=== PATIENT | male | born 1970 | race Caucasian/White ===

== ENCOUNTER 2021-07-30 06:48 | Outpatient (CLI) | payer BC, SELFPAY ==
--- NOTE | ~2021-07-30 | MR_ITS ---
EXAMINATION: MR lumbar spine wo con EXAM DATE: 07/30/2021 07:34 INDICATION: M54.16 - Radiculopathy, lumbar region. TECHNIQUE: Multi-sequential, multiplanar MR images of the lumbar spine were obtained without contrast . Sagittal T1, T2, T2 fat saturation images. Axial T2 weighted images. Comparison is made to prior examination from 04/17/2010. FINDINGS: There is been interval posterior and interbody fusion L3-5. Probable additional left hemila minotomy at L5-S1, correlate with surgical history. The conus medullaris terminates at the L1/2 level and has normal signal intensity and morphology. There is moderate loss of the L5-S1 disc height wit h 4 mm retrolisthesis. The vertebral bodies are otherwise aligned. Level by level evaluation: T12-L1: Disc does not extend beyond the endplate margin. Facet arthropathy: None. Neural foraminal stenosis: No stenosis. Central canal stenosis: No stenosis. L1-L2: Disc does not extend beyond the endplate margin. Facet arthropathy: Mild bilateral. Neural foraminal stenosis: No stenosis. Central canal stenosis: No stenosis. L2-L3: There is a mild to moderate diffuse disc bulge. Facet arthropathy: Mild to moderate. Neural foraminal stenosis: Mild right. Central canal stenosis: Mild to moderate. L3-L4: This level is fused with mild to moderate disc bulge suspected. Facet arthropathy: Moderate. Neural foraminal stenosis: Mild bilateral. Central canal stenosis: Mild to moderate. L4-L5: This level is fused with mild to moderate disc bulge still suspected. Facet arthropathy: Moderate bilateral. Neural foraminal stenosis: Mild to moderate bilateral. Central canal stenosis: Mild to moderate. L5-S1: There is a large diffuse disc bulge. Facet arthropathy: Moderate to severe right, moderate left. Neural foraminal stenosis: Moderate to severe right, moderate left. Central canal stenosis: Moderate. Compared to previous examination, the surgical changes are new. There appears to be more epidural lip omatosis than in 2010, which is contributing to smaller thecal sac space. Overall progression in spon dylosis. IMPRESSION: 1. L5-S1 grade 1 retrolisthesis, moderate to severe right neural foraminal stenosis. 2. L3-L5 fusion. 3. Progression in spondylosis as above. Reviewed, dictated and finalized at location A. IMPRESSION: 1. L5-S1 grade 1 retrolisthesis, moderate to severe right neural foraminal forrest nosis. 2. L3-L5 fusion. 3. Progression in spondylosis as above.
== END 2021-07-30 06:49 | disposition home or self-care (01) ==
PROVIDERS: PCP Family Medicine; Visit Provider Family Medicine
DX: M47.26 Other spondylosis with radiculopathy, lumbar region (principal); Z98.1 Arthrodesis status
CPT/HCPCS: 72148

== ENCOUNTER 2023-06-22 00:24 | Day surgery (SDC) | payer BC, SELFPAY ==
[2023-06-09 14:09] VITALS: BMI 28.8
--- NOTE | 2023-06-21 13:45 | P.PNAN_ITS ---
Anes - Initial Pre Proc Eval Procedure: Operation Date: 06/22/23 11:30 Proposed Procedures p Screening Colonoscopy - Demetris Zavaleta MD Date/Time: 06/21/23 13:45 Surgeon: Demetris Zavaleta MD Pre Op Diagnosis: neoplasm screening Patient Data Age: 52 Gender: M Height: 1.78 m Weight: 91 kg Allergies Allergy/AdvReac Type Severity Reaction Status Date / Time No Known Allergies Allergy Verified 06/22/23 10:18 Home Medications Medication Instructions Recorded Confirmed Type aspirin 81 mg tablet,delayed 81 mg PO DAILY 07/14/21 06/09/23 History release pregabalin 50 mg capsule 50 mg PO BID 07/14/21 06/09/23 History amlodipine 10 mg tablet 10 mg PO DAILY #90 tabs 10/01/21 06/09/23 Rx atorvastatin 40 mg tablet 40 mg PO DAILY #90 tabs 10/01/21 06/09/23 Rx carvedilol 25 mg tablet 25 mg PO Q12H #180 tabs 10/01/21 06/09/23 Rx doxazosin 4 mg tablet 4 mg PO DAILY #90 tabs 10/01/21 06/09/23 Rx cyclobenzaprine 5 mg tablet 5 mg PO TID PRN muscle spasm #30 10/28/22 06/09/23 Rx tabs tramadol 50 mg tablet 50 mg PO DAILY PRN Pain 06/09/23 06/09/23 History Patient hx anesthesia problems: none Family hx anesthesia problems: none Results Review: All pre-operative results and documents have been reviewed as part of the pre- operative evaluation. [facility] Past Medical History Medical History HLD (hyperlipidemia) HTN (hypertension) Surgical History Surgical History Disc displacement, lumbar L4 Family History Family History Father Melanoma Lung cancer Mother Hypertension Other Family history of arthritis Social History Social History (Updated 06/22/23 @ 10:48 by Karan Galvan DO) Smoking status: Current every day smoker Tobacco type: smokeless tobacco Smokeless tobacco user: chewing tobacco Second hand tobacco smoke exposure: Yes Smoking end date: 10/31/09 Alcohol intake: current Drinks per week: 40 Alcohol use details: vodka 6+ drinks/day Substance use: never Substance use type: does not use Living arrangements: with family Occupation/Education: occupation Gender identity (if verbalized by the patient): Male Sexual Orientation (if Verbalized by the Patient): Straight or Heterosexual Spiritual care concerns: No Anes - Eval Final PreProcedure Day of Procedure 06/21/23 13:45 Patient weight: overweight Heart: regular rate and rhythm Lungs: clear to auscultation Airway: Mallampati scale class II Neurological: alert and oriented Last oral intake: >/= 8 hours ASA classification: III Emergent: no Anesthetic plan: proceed Anesthesia type and monitoring: general GIVS and standard monitoring Results Review: All pre-operative results and documents have been reviewed as part of the pre- operative evaluation. Informed Consent: The patient's anesthetic plan and its attendant risks and benefits were discussed with the patient/family/POA. Questions were solicited and answers provided to the satisfaction of the patient/family/POA.
--- NOTE | 2023-06-21 15:50 | PM.HPGS ---
History of Present Illness History of Present Illness Consent: Risks, benefits, and alternatives have been discussed and questions answered. Patient agrees to proceed with procedure. Chief complaint: neoplasm screening Narrative: Agapito Rubio is a 52 year old male referred for colon cancer screening. Review of Systems Review of Systems: All systems reviewed & are unremarkable except as noted in HPI and below PMFSH Past Medical History Medical History HLD (hyperlipidemia) HTN (hypertension) Surgical History Surgical History Disc displacement, lumbar L4 Family History Family History Father Melanoma Lung cancer Mother Hypertension Other Family history of arthritis Social History Social History Smoking status: Current every day smoker Tobacco type: smokeless tobacco Smokeless tobacco user: chewing tobacco Second hand tobacco smoke exposure: Yes Smoking end date: 10/31/09 Alcohol intake: current Drinks per week: 40 Alcohol use details: vodka 6+ drinks/day Substance use: never Substance use type: does not use Living arrangements: with family Occupation/Education: occupation Gender identity (if verbalized by the patient): Male Sexual Orientation (if Verbalized by the Patient): Straight or Heterosexual Spiritual care concerns: No Meds Home Medications and Allergies Home Medications Medication Instructions Recorded Confirmed Type aspirin 81 mg tablet,delayed 81 mg PO DAILY 07/14/21 06/09/23 History release pregabalin 50 mg capsule 50 mg PO BID 07/14/21 06/09/23 History amlodipine 10 mg tablet 10 mg PO DAILY #90 tabs 10/01/21 06/09/23 Rx atorvastatin 40 mg tablet 40 mg PO DAILY #90 tabs 10/01/21 06/09/23 Rx carvedilol 25 mg tablet 25 mg PO Q12H #180 tabs 10/01/21 06/09/23 Rx doxazosin 4 mg tablet 4 mg PO DAILY #90 tabs 10/01/21 06/09/23 Rx cyclobenzaprine 5 mg tablet 5 mg PO TID PRN muscle spasm #30 10/28/22 06/09/23 Rx tabs tramadol 50 mg tablet 50 mg PO DAILY PRN Pain 06/09/23 06/09/23 History Allergies Allergy/AdvReac Type Severity Reaction Status Date / Time No Known Allergies Allergy Verified 06/22/23 10:18 Exam Resp: Auscultation: clear to auscultation bilaterally Cardio: Rate: regular rate Rhythm: regular rhythm GI: GI Palp: Yes Soft to palpation and No Tenderness to palpation present (GI) Assessment and Plan Assessment and plan (1) Colon cancer screening: Code(s): Z12.11 - Encounter for screening for malignant neoplasm of colon Status: Acute Assessment and Plan: Colonoscopy with possible biopsy or polypectomy or cautery or injection of substances.
[2023-06-22 10:19] VITALS: BP 153/94; PULSE 86; RESP 18; TEMP 36.2; O2SAT 99
[2023-06-22] MEDS: LACTATED RINGERS 1,000 ML 150 ML IV CONT (10:28)
[2023-06-22 11:42] VITALS: BP 120/80; PULSE 82; RESP 16; O2SAT 98
[2023-06-22 11:52] VITALS: BP 129/89; PULSE 81; RESP 16; O2SAT 99
[2023-06-22 12:02] VITALS: BP 146/99; PULSE 80; RESP 19; O2SAT 99
== END 2023-06-22 12:20 | disposition home or self-care (01) ==
PROVIDERS: PCP Family Medicine; Visit Provider Internal Medicine Gastroenterology
PROC: 0DJD8ZZ Inspection of Lower Intestinal Tract, Via Natural or Artificial Opening Endoscopic (ICD-10-PCS; CPT 45378; principal; 2023-06-22 11:30)
DX: Z12.11 Encounter for screening for malignant neoplasm of colon (principal); K57.30 Diverticulosis of large intestine without perforation or abscess without bleeding; I10 Essential (primary) hypertension; E78.5 Hyperlipidemia, unspecified; Z79.82 Long term (current) use of aspirin; F17.220 Nicotine dependence, chewing tobacco, uncomplicated
CPT/HCPCS: 45378; J2704; J7120

== ENCOUNTER 2023-07-12 07:50 | Outpatient (CLI) | payer BC, SELFPAY ==
[2023-07-12 09:30] LABS: Alanine Aminotransferase 60 U/L (6-50); Albumin Level 4.9 g/dL (3.5-5.1); Alkaline Phosphatase 54 U/L (38-126); Anion Gap 11 mmol/L (8-16); Aspartate Amino Transferase 62 U/L (17-59); Bilirubin,Total 0.9 mg/dL (0.2-1.3); Blood Urea Nitrogen 13 mg/dL (9-20); Calcium 9.4 mg/dL (8.4-10.2); Carbon Dioxide 27 mmol/L (22-30); Chloride 101 mmol/L (98-107); Cholesterol 124 mg/dL (0-200); Estimated Glomerular Filt Rate > 60; Glucose 103 mg/dL (65-110); HDL Direct 31 mg/dL; Potassium 4.1 mmol/L (3.4-5.0); Sodium 139 mmol/L (137-145); Triglycerides 81 mg/dL (<150)
[2023-07-12 09:41] LABS: Hematocrit 44.7 % (42.0-52.0); Hemoglobin 15.2 g/dL (14.0-18.0); Mean Corpuscular Hemoglobin 32.6 pg (26-34); Mean Corpuscular Volume 95.9 fl (80-100); Mean Platelet Volume 10.1 fl (7.4-10.4); Platelet Count Result 379 k/mm3 (150-375); Red Blood Count 4.66 M/mm3 (4.6-6.20); Red Cell Distribution Width 11.8 % (11.5-14.5); White Blood Count 7.3 K/mm3 (4.5-10.0)
[2023-07-12 09:42] LABS: LDL Cholesterol Direct 66 mg/dL
[2023-07-12 09:43] LABS: Amorphous Sediment Urine Present; Appearance Urine Cloudy (Clear); Bacteria Urine 4+ /hpf; Bilirubin Urine 1+ (Negative); Blood Urine Negative (Negative); Color Urine Dark Yellow (Yellow); Glucose Urine UA Negative (Negative); Ketones Urine Trace mg/dL (Negative); Leukocyte Esterase Ur Trace LEU/UL (NEGATIVE); Need Manual Microscopic Reviewed; Nitrate Urine Positive (Negative); Protein Urine Negative (Negative); RBC Urine 0-2 /hpf (0-2); Specific Grav Ur 1.035 (1.001-1.035); Squamous Epithelial Cell Urine Occasional /hpf (Few); Urobilinogen Urine 0.2 mg/dL (<2.0); WBC Urine 21-50 /hpf (0-3); pH Urine 5.5 (5.0-9.0)
[2023-07-12 09:46] LABS: Add Urine Microscopic? YES
[2023-07-12 10:01] LABS: Prostate Specific Antigen 1.5 ng/mL (< OR = 4.0)
[2023-07-12 10:28] LABS: Vitamin D 25 Hydroxy 48.3 ng/mL
== END 2023-07-12 07:51 | disposition home or self-care (01) ==
PROVIDERS: PCP Family Medicine; Visit Provider Physician Assistant
DX: E78.5 Hyperlipidemia, unspecified (principal); I10 Essential (primary) hypertension; R53.83 Other fatigue; Z12.5 Encounter for screening for malignant neoplasm of prostate
CPT/HCPCS: 36415; 80053; 80061; 81001; 82306; 84153; 84443; 85027; G0103

== ENCOUNTER 2023-11-30 15:17 | Outpatient (CLI) | payer BC, SELFPAY ==
[2023-11-30 19:20] LABS: Alanine Aminotransferase 25 U/L (6-50); Albumin Level 4.6 g/dL (3.5-5.1); Alkaline Phosphatase 53 U/L (38-126); Anion Gap 10 mmol/L (8-16); Aspartate Amino Transferase 36 U/L (17-59); Bilirubin,Total 0.9 mg/dL (0.2-1.3); Blood Urea Nitrogen 15 mg/dL (9-20); Calcium 9.8 mg/dL (8.4-10.2); Carbon Dioxide 30 mmol/L (22-30); Chloride 101 mmol/L (98-107); Estimated Glomerular Filt Rate > 60; Glucose 78 mg/dL (65-110); Potassium 3.5 mmol/L (3.4-5.0); Sodium 141 mmol/L (137-145)
[2023-11-30 20:24] LABS: Folic Acid 12.6 ng/mL (2.76->20)
== END 2023-11-30 15:18 | disposition home or self-care (01) ==
LOC: ANHLAB 15:19
PROVIDERS: PCP Family Medicine; Visit Provider Physician Assistant
DX: R20.2 Paresthesia of skin (principal); I10 Essential (primary) hypertension; R53.83 Other fatigue
CPT/HCPCS: 36415; 80053; 82607; 82746; 84443

== ENCOUNTER 2023-12-19 08:37 | Outpatient (CLI) | payer BC, SELFPAY ==
[2023-12-19 09:44] LABS: Hemoglobin A1C 5.8 % (<5.7)
== END 2023-12-19 08:38 | disposition home or self-care (01) ==
LOC: ANHLAB 08:38
PROVIDERS: PCP Family Medicine; Visit Provider Physician Assistant
DX: R73.01 Impaired fasting glucose (principal); R20.0 Anesthesia of skin; R20.2 Paresthesia of skin
CPT/HCPCS: 36415; 83036

== ENCOUNTER 2024-06-19 15:27 | Outpatient (CLI) | payer BC, SELFPAY ==
[2024-06-19 16:04] LABS: Hematocrit 40.2 % (42.0-52.0); Hemoglobin 13.7 g/dL (14.0-18.0); Mean Corpuscular HGB Conc 34.1 g/dl (32-36); Mean Corpuscular Hemoglobin 29.9 pg (26-34); Mean Corpuscular Volume 87.8 fl (80-100); Mean Platelet Volume 9.6 fl (7.4-10.4); Platelet Count Result 276 k/mm3 (150-375); Red Blood Count 4.58 M/mm3 (4.6-6.20); Red Cell Distribution Width 13.2 % (11.5-14.5); White Blood Count 8.3 K/mm3 (4.5-10.0)
[2024-06-19 16:06] LABS: Add Urine Microscopic? NO; Appearance Urine Clear (Clear); Bilirubin Urine Negative (Negative); Blood Urine Negative (Negative); Color Urine Yellow (Yellow); Glucose Urine UA Negative (Negative); Ketones Urine Negative (Negative); Leukocyte Esterase Ur Negative LEU/UL (Negative); Nitrate Urine Negative (Negative); Protein Urine Negative (Negative); Urobilinogen Urine 0.2 mg/dL (<2.0); pH Urine 6.5 (5.0-9.0)
[2024-06-19 16:49] LABS: Alanine Aminotransferase 24 U/L (6-50); Albumin Level 4.6 g/dL (3.5-5.1); Alkaline Phosphatase 61 U/L (38-126); Anion Gap 10 mmol/L (4-12); Aspartate Amino Transferase 34 U/L (17-59); Bilirubin,Total 0.6 mg/dL (0.2-1.3); Blood Urea Nitrogen 13 mg/dL (9-20); Calcium 8.9 mg/dL (8.4-10.2); Carbon Dioxide 30 mmol/L (22-30); Chloride 99 mmol/L (98-107); Cholesterol 105 mg/dL (0-200); Estimated Glomerular Filt Rate > 60; Glucose 82 mg/dL (65-110); HDL Direct 38 mg/dL; Potassium 3.9 mmol/L (3.4-5.0); Sodium 139 mmol/L (137-145); Triglycerides 99 mg/dL (<150)
[2024-06-19 17:00] LABS: LDL Cholesterol Direct 46 mg/dL
[2024-06-19 17:22] LABS: Prostate Specific Antigen 1.1 ng/mL (< OR = 4.0)
[2024-06-19 18:09] LABS: Folic Acid 13.4 ng/mL (2.76->20)
== END 2024-06-19 15:28 | disposition home or self-care (01) ==
LOC: ANHLAB 15:28
PROVIDERS: PCP Family Medicine; Visit Provider Family Medicine
DX: E78.5 Hyperlipidemia, unspecified (principal); I10 Essential (primary) hypertension; R35.1 Nocturia; R20.0 Anesthesia of skin; Z00.00 Encounter for general adult medical examination without abnormal findings
CPT/HCPCS: 36415; 80053; 80061; 81003; 82607; 82746; 84153; 84443; 85027

== ENCOUNTER 2024-10-19 15:03 | Outpatient (CLI) | payer BC, SELFPAY ==
[2024-10-19 15:53] LABS: Basophils Absolute Auto 0.1 K/mm3 (0.0-0.1); Basophils Percent Auto 0.8 % (0.2-1.2); Eosinophils Absolute Auto 0.2 K/mm3 (0-0.3); Eosinophils Percent Auto 1.9 % (0-4.4); Hematocrit 40.9 % (42.0-52.0); Hemoglobin 14.1 g/dL (14.0-18.0); Immature Granulocyte Absolute 0.03 K/mm3 (0.00-0.031); Immature Granulocyte Percent A 0.3 % (0-0.5); Lymphocytes Absolute Auto 4.78 K/mm3 (0.9-3.2); Lymphocytes Percent Auto 44.7 % (18.3-44.2); Mean Corpuscular HGB Conc 34.5 g/dl (32-36); Mean Corpuscular Hemoglobin 30.2 pg (26-34); Mean Corpuscular Volume 87.6 fl (80-100); Mean Platelet Volume 9.7 fl (7.4-10.4); Monocytes Absolute Auto 0.7 K/mm3 (0.1-0.6); Monocytes Percent Auto 6.5 % (2.6-8.5); Neutrophils Absolute Auto 4.9 K/mm3 (1.3-6.7); Neutrophils Percent Auto 45.8 % (45.5-73.1); Platelet Count Result 263 k/mm3 (150-375); Red Blood Count 4.67 M/mm3 (4.6-6.20); White Blood Count 10.7 K/mm3 (4.5-10.0)
[2024-10-19 16:49] LABS: Free T4 Free Thyroxine 0.98 ng/dL (0.78-2.19)
== END 2024-10-19 15:04 | disposition home or self-care (01) ==
LOC: ANHLAB 15:04
PROVIDERS: PCP Family Medicine; Visit Provider Family Medicine
DX: E03.9 Hypothyroidism, unspecified (principal); D64.9 Anemia, unspecified
CPT/HCPCS: 36415; 84439; 84443; 85025

== ENCOUNTER 2025-06-13 07:57 | Outpatient (CLI) | payer BC, SELFPAY ==
--- OUTSIDE RECORDS SUMMARY | 2025-06-13 08:00 | XMS_ITS | Continuity of Care Document ---
Author Name [facility] Organization [facility] Care Team Providers Care Strike Warfare/Missile Systems Officer Name Role Phone [facility] Unavailable Unavailable Problems Combined list of problems from Department of Defense and Veterans Affairs facilities. It does not include entries that were removed or entered in error. Problem Status Onset Date Problem Type Date of Resolution Comme nts Source Other displaced fracture of upper end of left humerus Active Condition DoD Allergies, Adverse Reactions, Alerts Combined list of allergies from Department of Defense and Veterans Affairs facilities. It does not include entries that were removed or entered in error. Substance Category Reaction Severity Reaction type Status Date Reported Comments Source No Known Allergies Drug allergy (disorder) active 01/05/2017 [facility] Immunizations Combined list of available immunizations from the Department of Defense and Veterans Affairs facilities. Immunization Series Date Given Administered By Site Reaction Lot Number CVX Code Drug Food Service Order Clerk Status Comments Source SARS-COV-2 (COVID-19) vaccine, mRNA, spike protein, LNP, preservative free, 100 mcg or 50 mcg dose 2 2020 ANA TIRADO L [id number] 207 [employer]. (MOD) complet ed SARS-COV- 2 (COVID-19 ) vaccine, mRNA, spike protein, LNP, preservat cesar free, 100 mcg or 50 mcg dose [facility] SARS-COV-2 (COVID-19) vaccine, mRNA, spike protein, LNP, preservative free, 100 mcg or 50 mcg dose 1 2020 TIRADOGALILEA COLINOS L [id number] 207 [employer] (MOD) complet ed SARS-COV- 2 (COVID-19 ) vaccine, mRNA, spike protein, LNP, preservat cesar free, 100 mcg or 50 mcg dose DoD Influenza, injectable, quadrivalent, preservative free 1 2020 ELIAN NGUYEN [id number] [employer] (SEQ) complet ed Influenza , injectabl e, quadrival ent, preservat cesar free DoD Encounters Combined list of: 1) Encounters from Department of Veterans Affairs facilities going backup to the last 18 months, not all VA inpatient encounters are included; 2) Encounters from the Department of Defense facilities going backup to 280 months. Location Location Details Encounter Type Encounter Number Reason For Visit Attending Provider ADM Date DC Date Status [facility] OUTPATIENT [id number] Notes Entered by: MARK CARBAJAL 13 Jun 2017 1047 ------- ------- ------- ------- -- 46y/o M Right foot px CHRISTINA THOMAS 06/13 Sick at Home/Quarter s [facility]) [facility]) OUTPATIENT [id number] left humeral fx MINA JIMENEZ 06/09 Released w/o Limitations [facility]) [facility] OUTPATIENT [id number] F/U for left arm fractur e MINA JIMENEZ 06/16 Released w/o Limitations [facility]) [facility]) OUTPATIENT [id number] F/U for Left Shoulde r MINA JIMENEZ 06/24 Released w/o Limitations [facility]) [facility] Physical Therapy) OUTPATIENT [id number] Left shoulde r proxima l humerus fractur e JASON PFEIFFER 07/14 Released w/o Limitations [facility] Phys[facility] ) [facility]) OUTPATIENT [id number] f/u left shoulde r and xrays MINA JIMENEZ Ravi 07/18 Released w/o Limitations [facility]) [facility]) OUTPATIENT [id number] JAYANT OSEI 07/18 Released w/o Limitations [facility] ) [facility]) OUTPATIENT [id number] PETE TORRES 07/28 Released w/o Limitations [facility] ) [facility]) OUTPATIENT [id number] treatme nt PETE TORRES 08/05 Released w/o Limitations [facility] ) [facility]) OUTPATIENT [id number] ftr JASON Chery 08/08 Released w/o Limitations [facility] ) [facility]) OUTPATIENT [id number] JAYANT OSEI 08/14 Released w/o Limitations [facility] ) [facility]) OUTPATIENT [id number] PETE TORRES 08/18 Released w/o Limitations [facility] ) [facility]) OUTPATIENT [id number] PETE TORRES 08/19 Released w/o Limitations [facility] ) [facility]) OUTPATIENT [id number] JAYANT OSEI 08/21 Released w/o Limitations [facility] ) [facility] Emergency Room) OUTPATIENT [id number] KERRIE ESPINOZA 08/21 Released w/o Limitations [facility] Emer[facility]) [facility]) OUTPATIENT [id number] PETE TORRES 08/26 Released w/o Limitations [facility] Phys[facility] Therapy ) [facility] Orth[facility]) OUTPATIENT [id number] F/U for left arm MINA JIMENEZ 09/02 Released w/o Limitations [facility] Orth[facility]) [facility]) OUTPATIENT [id number] JAYANT OSEI 09/02 Released w/o Limitations [facility] Phys[facility] Therapy ) [facility] DIRECT TO FLF FROM OTHER THAN ER OR APU [id number] BERNARD MCKENZIE 09/02 DISCHARGED HOME [facility]) OUTPATIENT [id number] L4 AO Spine Type A2 pincer fractur e MAYSMACKENZIE Neves N 09/03 Released w/o Limitations [facility]) [facility] Mass Immunizat ions) OUTPATIENT [id number] Dose 1 ARIADNE LEO 02/24 Released w/o Limitations [facility] Mass Immuniz ations) [facility] Mass Immuniz[facility] ions) OUTPATIENT [id number] 4 dose 2 LAURA AZALEA 03/26 Released w/o Limitations [facility] Mass Immuniz ations) Procedures Combined list of: 1) Procedures from Department of Veterans Affairs facilities going back up to thelast 18 months, not all VA non-surgical procedures are included; 2) All procedures from the Department of Defense facilities. Procedure Procedure Type Code Date Perfomer Comments Sourc e VISION ITEM OR SERVICE, MISCELLANEOUS 11/21/19 02 DoD PURE TONE AUDIOMETRY (THRESHOLD); AIR ONLY 11/10/19 02 DoD VISION ITEM OR SERVICE, MISCELLANEOUS 11/10/19 02 DoD IMMUNIZATION ADM,INTRAMUSCULAR INJECTION OF SEVERE AC RESPIRATORY SYNDROME CORONAVIR 2 (SARSCOV-2) (CORONAVIR DIS [COVID-19]) VACC,MRNALNP,SPIKE PROT,PRESERVATIVE FREE,100 MCG/0.5ML DOSAG;SECOND DOSE 03/26/20 21 DoD IMMUNIZATION ADM,INTRAMUSCULAR INJECTION OF SEVERE AC RESPIRATORY SYNDROME CORONAVIR 2 (SARSCOV-2) (CORONAVIR DIS [COVID-19]) VACCINE,MRNALNP,SPIKE PROT,PRESERVATIVE FREE,100 MCG/0.5ML DOSAG;1ST DOSE 04/27/20 21 DoD INJECTION, KETOROLAC TROMETHAMINE, PER 15 MG 09/27/20 [facility] PSYCHIATRIC DIAGNOSTIC EVALUATION 09/05/20 [facility] LUMB-SAC ORTH,SAG-COR CTR,RIG ANT&PST FRM/CONWAY,PST EXT FRM SAC JCT TO T-9 VERT,LAT STR PROV,RIG LAT FRM/CONWAY,PROD INTRACAV PRES RED LOAD INTERVER DSC,STRP,CLOS,PAD,SHLD STRP,PEN AB,PREFAB,TRIM,CUST FIT 09/03/20 [facility] INFUSION, NORMAL SALINE SOLUTION , 1000 CC 09/02/20 [facility] APPLICATION OF A MODALITY TO 1 OR MORE AREAS; HOT OR COLD PACKS 09/02/20 [facility] THERAPEUTIC PROCEDURE, 1 OR MORE AREAS, EACH 15 MINUTES; THERAPEUTIC EXERCISES TO DEVELOP STRENGTH AND ENDURANCE, RANGE OF MOTION AND FLEXIBILITY 08/26/20 [facility] MANUAL THERAPY TECHNIQUES (EG, MOBILIZATION/ MANIPULATION, MANUAL LYMPHATIC DRAINAGE, MANUAL TRACTION), 1 OR MORE REGIONS, EACH 15 MINUTES 08/21/20 [facility] THERAPEUTIC PROCEDURE, 1 OR MORE AREAS, EACH 15 MINUTES; THERAPEUTIC EXERCISES TO DEVELOP STRENGTH AND ENDURANCE, RANGE OF MOTION AND FLEXIBILITY 08/19/20 [facility] THERAPEUTIC PROCEDURE, 1 OR MORE AREAS, EACH 15 MINUTES; THERAPEUTIC EXERCISES TO DEVELOP STRENGTH AND ENDURANCE, RANGE OF MOTION AND FLEXIBILITY 08/18/20 [facility] MANUAL THERAPY TECHNIQUES (EG, MOBILIZATION/ MANIPULATION, MANUAL LYMPHATIC DRAINAGE, MANUAL TRACTION), 1 OR MORE REGIONS, EACH 15 MINUTES 08/14/20 [facility] MANUAL THERAPY TECHNIQUES (EG, MOBILIZATION/ MANIPULATION, MANUAL LYMPHATIC DRAINAGE, MANUAL TRACTION), 1 OR MORE REGIONS, EACH 15 MINUTES 08/08/20 [facility] THERAPEUTIC PROCEDURE, 1 OR MORE AREAS, EACH 15 MINUTES; THERAPEUTIC EXERCISES TO DEVELOP STRENGTH AND ENDURANCE, RANGE OF MOTION AND FLEXIBILITY 08/05/20 [facility] THERAPEUTIC PROCEDURE, 1 OR MORE AREAS, EACH 15 MINUTES; THERAPEUTIC EXERCISES TO DEVELOP STRENGTH AND ENDURANCE, RANGE OF MOTION AND FLEXIBILITY 07/28/20 [facility] MANUAL THERAPY TECHNIQUES (EG, MOBILIZATION/ MANIPULATION, MANUAL LYMPHATIC DRAINAGE, MANUAL TRACTION), 1 OR MORE REGIONS, EACH 15 MINUTES 07/18/20 [facility] ADMINISTRATION OF PATIENT-FOCUSED HEALTH RISK ASSESSMENT INSTRUMENT (EG, HEALTH HAZARD APPRAISAL) WITH SCORING AND DOCUMENTATION, PER STANDARDIZED INSTRUMENT 07/14/20 [facility] CLOSED TREATMENT OF PROXIMAL HUMERAL (SURGICAL OR ANATOMICAL NECK) FRACTURE; WITHOUT MANIPULATION 08/10/20 20 DoD SLINGS 06/06/20 20 [facility] INJECTION, KETOROLAC TROMETHAMINE, PER 15 MG 04/12/20 20 [facility] PSYCHIATRIC EVALUATION OF HOSPITAL RECORDS, OTHER PSYCHIATRIC REPORTS, PSYCHOMETRIC AND/OR PROJECTIVE TESTS, AND OTHER ACCUMULATED DATA FOR MEDICALDIAGNOSTIC PURPOSES 06/12/20 18 [facility] SURGICAL BOOT/SHOE, EACH 06/13/20 17 [facility] EDUCATIONAL SUPPLIES, SUCH BOOKS, TAPES, AND PAMPHLETS, FOR THE PATIENT'S EDUCATION AT COST TO PHYSICIAN OR OTHER QUALIFIED HEALTH COMPLIANCE COORDINATOR 03/21/20 [facility] Psychiatric Evaluation Review of Records and Reports Psychiatric Evaluation Review of Records and Reports [id number] 06/12/20 18 SUSY ANJALILEONID GROVES [facility] Surgical boot/shoe, each 06/13/20 17 CHRISTINA THOMAS [facility] history of prior surgery [For Hx of Tx, use H prefix] MAHAD MCLAIN [facility] Closed Treatment Of Proximal Humeral Fracture Closed Treatment Of Proximal Humeral Fracture [id number] MACKENZIE MAYS LEFT PROXIMAL HUMERUS WITH SLING [facility] Physical Therapy Neuromuscular Re-education Physical Therapy Neuromuscular Re-education [id number] JASON PFEIFFER [facility] Phys Therapy Education Self Care Training - Per 15 Minutes Phys Therapy Education Self Care Training - Per 15 Minutes [id number] JASON PFEIFFER [facility] Physical Therapy Mobilization Joint Physical Therapy Mobilization Joint [id number] JAYANT OSEI [facility] Physical Therapy: ___ Se ion Segments, 15 Minutes Each Physical Therapy: ___ Session Segments, 15 Minutes Each [id number] JAYANT OSEI [facility] Physical Medicine Physical Therapy Re-Evaluation Physical Medicine Physical Therapy Re-Evaluation [id number] JASON PFEIFFER [facility] Modalities Heat Hot Packs Modalities Heat Hot Packs [id number] JAYANT OSEI [facility] Psychiatric Therapy Individual Approximately 20-30 Minutes Psychiatric Therapy Individual Approximately 20-30 Minutes [id number] KAMLESH GUILLORY [facility] Physical Therapy Education Orthotics Training Physical Therapy Education Orthotics Training [id number] MACKENZIE MAYS [facility] Lumbar-sacral orthosis, sagittal-coronal control, with rigid anterior and posterior frame/panels, posterior extends from sacrococcygeal junction to T-9 vertebra, lateral strength provided by rigid lateral frame/panels, produces intracavitary pre ure to reduce load on intervertebral discs, includes straps, closures, may include padding, shoulder straps, pendulous abdomen design, prefabricated item that has been trimmed, bent, molded, a embled, or otherwise customized to fit a specific patient by an individual with expertise MACKENZIE MAYS DoD Social History Combined list of available smoking, tobacco, and other social history from Department of Defense and Veterans Affairs facilities. Social History Type Response Date Comment [facility] e This section is an empty social history section. DoD
--- OUTSIDE RECORDS SUMMARY | 2025-06-13 08:01 | XMS_ITS | Clinical Summary ---
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 Gender Identity Not on file Sexual Orientation Not on file Plan of Treatment Health Maintenance Due Date Last Done Comments Hepatitis C Virus (HCV) Screening 1968 TdaP Immunization 1968 Hepatitis B Immunization (1 of 3 - 19+ 3-dose series) 1987 Cologuard 2013 Colonoscopy 2013 Colorectal Cancer Screening 2013 Immunochemical Fecal Occult Blood 2013 Pneumococcal Immunization (5 0+ years) (1 of 1 - PCV) 2018 Zoster Immunization (1 of 2) 2018 SARS-COV-2 Immunization (1 - 2023- season) 2024 Influenza Immunization (#1) 2025 Respiratory Syncytial Virus (RSV) Immunization (Adult) (1 - 1-dose 75+ series) 2043 Human Papillomavirus (HPV) Immunization Aged Out No longer eligible b ased on patient's age to complete this topic Meningococcal Immunization (ACWY) Aged Out No longer eligible based on patient's age to complete this topic Rotavirus Immunization Aged Out No lo nger eligible based on patient's age to complete this topic
[2025-06-13 08:22] LABS: Hematocrit 41.6 % (42.0-52.0); Hemoglobin 14.3 g/dL (14.0-18.0); Mean Corpuscular HGB Conc 34.4 g/dl (32-36); Mean Corpuscular Hemoglobin 29.5 pg (26-34); Mean Corpuscular Volume 86.0 fl (80-100); Platelet Count Result 247 k/mm3 (150-375); Red Blood Count 4.84 M/mm3 (4.6-6.20); White Blood Count 8.0 K/mm3 (4.5-10.0)
[2025-06-13 08:33] LABS: Add Urine Microscopic? NO; Appearance Urine Clear (Clear); Glucose Urine UA Negative (Negative); Leukocyte Esterase Ur Negative LEU/UL (Negative); Nitrate Urine Negative (Negative); Specific Grav Ur 1.017 (1.001-1.035)
[2025-06-13 08:44] LABS: Alanine Aminotransferase 25 U/L (6-50); Albumin Level 4.8 g/dL (3.5-5.1); Alkaline Phosphatase 64 U/L (38-126); Anion Gap 11 mmol/L (4-12); Aspartate Amino Transferase 36 U/L (17-59); Bilirubin,Total 0.7 mg/dL (0.2-1.3); Blood Urea Nitrogen 10 mg/dL (9-20); Calcium 9.5 mg/dL (8.4-10.2); Carbon Dioxide 27 mmol/L (22-30); Chloride 101 mmol/L (98-107); Cholesterol 100 mg/dL (0-200); Estimated Glomerular Filt Rate > 60; Glucose 125 mg/dL (65-110); HDL Direct 37 mg/dL; Potassium 4.3 mmol/L (3.4-5.0); Sodium 139 mmol/L (137-145); Total Protein 7.8 g/dL (6.3-8.2); Triglycerides 75 mg/dL (<150)
[2025-06-13 08:59] LABS: Free T4 Free Thyroxine 0.95 ng/dL (0.78-2.19)
[2025-06-13 09:19] LABS: Prostate Specific Antigen 1.2 ng/mL (< OR = 4.0); Thyroid Stimulating Hormone 3.020 uIU/mL (0.465-4.680)
== END 2025-06-13 07:58 | disposition home or self-care (01) ==
LOC: ANHLAB 07:58
PROVIDERS: PCP Family Medicine; Visit Provider Family Medicine
DX: R79.89 Other specified abnormal findings of blood chemistry (principal); I10 Essential (primary) hypertension; E78.5 Hyperlipidemia, unspecified; Z00.00 Encounter for general adult medical examination without abnormal findings; R35.1 Nocturia; R53.83 Other fatigue
CPT/HCPCS: 36415; 80053; 80061; 81003; 84153; 84439; 84443; 85027

== ENCOUNTER 2025-08-16 12:41 | Outpatient (CLI) | payer BC, SELFPAY ==
--- NOTE | ~2025-08-16 | XR_ITS ---
EXAMINATION: XR hip RT min 2V, 08/16/2025 12:50 CDT HISTORY: M25.551 - Pain in right hip, LATERAL PAIN, NKI, 3 MONTHS COMPARISON: No comparisons available. Findings: No acute fracture or malalignment. Severe degenerative changes Soft tissues unremarkable. Impression: No acute fracture or malalignment. Reviewed, dictated and finalized at location P. Impression: No acute fracture or malalignment.
--- OUTSIDE RECORDS SUMMARY | 2025-08-16 12:57 | XMS_ITS | Clinical Summary ---
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
== END 2025-08-16 12:42 | disposition home or self-care (01) ==
PROVIDERS: PCP Family Medicine; Visit Provider Family Medicine
DX: M25.551 Pain in right hip (principal)
CPT/HCPCS: 73502